=== PATIENT | male | born 1970 | race Caucasian/White ===

== ENCOUNTER 2017-05-08 12:05 | Emergency (ER) | payer SELFPAY ==
[~2017-05-08] VITALS: Ht 188 cm; Wt 80.0 kg
[~2017-05-08 12:05] MED LIST: BACT800T5 PO; CEPH500C3 PO; REME15TA PO; SERO400T3 PO; SERT100 PO; VIST25CA PO
[2017-05-08 12:17] VITALS: BP 121/69; PULSE 72; RESP 16; TEMP 98.2; O2SAT 94
[2017-05-08 12:21] VITALS: O2SAT 95
[2017-05-08 12:56] LABS: AUTOMATED NEUTROPHIL # 3.5 TH/MM3 (1.8-7.7); BASOPHIL % 0.7 % (0.0-2.0); EOSINOPHIL # 0.1 TH/MM3 (0-0.4); HEMATOCRIT 35.9 % (39.0-51.0); HEMO FLAGS DIFF FINAL; LYMPH % 27.4 % (9.0-44.0); LYMPHOCYTE # 1.5 TH/MM3 (1.0-4.8); MEAN CELL VOLUME 90.3 FL (80.0-100.0); MEAN CORPUSCULAR HEMOGLOBIN 30.3 PG (27.0-34.0); MEAN CORPUSCULAR HGB CONC 33.5 % (32.0-36.0); MONO % 8.6 % (0.0-8.0); NEUT % 62.3 % (16.0-70.0); PLATELET COUNT 275 TH/MM3 (150-450); RED BLOOD COUNT 3.97 MIL/MM3 (4.50-5.90); RED CELL DISTRIBUTION WIDTH 14.2 % (11.6-17.2); WHITE BLOOD COUNT 5.6 TH/MM3 (4.0-11.0)
--- NOTE | 2017-05-08 12:57 | PD ---
HPI Chief Complaint: Seizure Time Seen by Provider: 12:19 Travel History International Travel<30 days: No Contact w/Intl Traveler<30days: No Traveled to known affect area: No History of Present Illness HPI 46 is old male was brought in by EMS after a seizure episode. Patient has history of traumatic brain injury with recurrent seizure. Patient was seen by physician in the past and not put on any antiseizure medication. Patient states that the seizure usually induced by stress. Patient states that he smoked K2 recently including this morning. Patient has history of cocaine abuse in the past. Patient states that he is not on any routine medication. Patient denies any alcohol abuse. Patient denies any injury during the seizure episode this morning. PFSH Past Medical History Hx Anticoagulant Therapy: No Cardiovascular Problems: No Chemotherapy: No Cerebrovascular Accident: No Diminished Hearing: No Respiratory: No Seizures: Yes ?: Not Past Surgical History Other Surgery: Yes (BRAIN SURGERY.) Social History Alcohol Use: No (RARE) Tobacco Use: Yes (1.5 PPD) Substance Use: Yes (MARIJUANA DAILY ) Allergies-Medications (Allergen,Severity, Reaction): Coded Allergies: acetaminophen (Unverified Allergy, Severe, Rash, 05/08/17) divalproex sodium (Unverified Allergy, Severe, Itching, 05/08/17) propoxyphene (Unverified Allergy, Severe, Rash, 05/08/17) *MDRO Multi-Drug Resistant Organism (Verified Adverse Reaction, Unknown, ) MRSA (elbow-03/2016) Reported Meds & Prescriptions Reported Meds & Active Scripts Active Review of Systems General / Constitutional: No: Fever Eyes: No: Visual changes HENT: No: Headaches Cardiovascular: No: Chest Pain or Discomfort Respiratory: No: Shortness of Breath Gastrointestinal: No: Abdominal Pain Genitourinary: No: Dysuria Musculoskeletal: No: Pain Skin: No Rash Neurologic: Positive: Seizures, No: Weakness Psychiatric: No: Depression Endocrine: No: Polydipsia Hematologic/Lymphatic: No: Easy Bruising Physical Exam Narrative GENERAL: Well-nourished, well-developed patient. SKIN: Focused skin assessment warm/dry. HEAD: Normocephalic. EYES: No scleral icterus. No injection or drainage. NECK: Supple, trachea midline. No JVD or lymphadenopathy. CARDIOVASCULAR: Regular rate and rhythm without murmurs, gallops, or rubs. RESPIRATORY: Breath sounds equal bilaterally. No accessory muscle use. GASTROINTESTINAL: Abdomen soft, non-tender, nondistended. MUSCULOSKELETAL: No cyanosis, or edema. BACK: Nontender without obvious deformity. No CVA tenderness. Neurologic exam normal. Data Data Last Documented VS Vital Signs Date Time Temp Pulse Resp B/P (MAP) Pulse Ox O2 Delivery O2 Flow Rate FiO2 05/08/17 12:21 95 Room Air 05/08/17 12:17 98.2 72 16 121/69 (86) Orders Orders Complete Blood Count With Diff (05/08/17 12:19) Comprehensive Metabolic Panel (05/08/17 12:19) Thyroid Stimulating Hormone (05/08/17 12:19) Iv Access Insert/Monitor (05/08/17 12:19) Ecg Monitoring (05/08/17 12:19) Oximetry (05/08/17 12:19) Drug Screen, Random Urine (05/08/17 12:19) Electrocardiogram (05/08/17 ) Labs Laboratory Tests Test 05/08/17 12:30 White Blood Count 5.6 TH/MM3 Red Blood Count 3.97 MIL/MM3 Hemoglobin 12.0 GM/DL Hematocrit 35.9 % Mean Corpuscular Volume 90.3 FL Mean Corpuscular Hemoglobin 30.3 PG Mean Corpuscular Hemoglobin Concent 33.5 % Red Cell Distribution Width 14.2 % Platelet Count 275 TH/MM3 Mean Platelet Volume 8.5 FL Neutrophils (%) (Auto) 62.3 % Lymphocytes (%) (Auto) 27.4 % Monocytes (%) (Auto) 8.6 % Eosinophils (%) (Auto) 1.0 % Basophils (%) (Auto) 0.7 % Neutrophils # (Auto) 3.5 TH/MM3 Lymphocytes # (Auto) 1.5 TH/MM3 Monocytes # (Auto) 0.5 TH/MM3 Eosinophils # (Auto) 0.1 TH/MM3 Basophils # (Auto) 0.0 TH/MM3 CBC Comment DIFF FINAL Differential Comment Blood Urea Nitrogen 15 MG/DL Creatinine 0.96 MG/DL Random Glucose 88 MG/DL Total Protein 6.8 GM/DL Albumin 3.4 GM/DL Calcium Level 8.6 MG/DL Alkaline Phosphatase 102 U/L Aspartate Amino Transf (AST/SGOT) 12 U/L Alanine Aminotransferase (ALT/SGPT) 18 U/L Total Bilirubin 0.2 MG/DL Sodium Level 145 MEQ/L Potassium Level 3.8 MEQ/L Chloride Level 113 MEQ/L Carbon Dioxide Level 26.1 MEQ/L Anion Gap 6 MEQ/L Estimat Glomerular Filtration Rate 84 ML/MIN Thyroid Stimulating Hormone 3rd Gen 1.780 uIU/ML Urine Opiates Screen NEG Urine Barbiturates Screen NEG Urine Amphetamines Screen NEG Urine Benzodiazepines Screen NEG Urine Cocaine Screen NEG Urine Cannabinoids Screen NEG MDM Medical Decision Making Medical Screen Exam Complete: Yes Emergency Medical Condition: Yes Interpretation(s) 1336 PM. CBC within normal limit. CMP within normal limit. Urine drug screen negative. Differential Diagnosis Differential diagnosis including seizure, electrolyte imbalance, substance abuse. Narrative Course 46 years old male with seizure. History of substance abuse. Diagnosis Primary Impression: Seizure Additional Impression: Substance abuse Patient Instructions: General Instructions Additional Instructions: Follow-up with local physician and neurologist. Return as needed. Advised patient against drug abuse. No driving until cleared by neurologist. Med/Other Pt SpecificInfo: No Meds Exist/No RX given Disposition: 01 DISCHARGE HOME Condition: Stable Miguel Webber MD May 08, 2017 12:57
[2017-05-08 13:09] LABS: ALT (GPT) 18 U/L (12-78); ANION GAP 6 MEQ/L (5-15); AST (GOT) 12 U/L (15-37); BICARBONATE 26.1 MEQ/L (21.0-32.0); BLOOD UREA NITROGEN 15 MG/DL (7-18); CHLORIDE 113 MEQ/L (98-107); GLOMERULAR FILTRATION RATE 84 ML/MIN (>89); POTASSIUM 3.8 MEQ/L (3.5-5.1); SODIUM (NA) 145 MEQ/L (136-145)
[2017-05-08 13:18] LABS: ALKALINE PHOSPHATASE 102 U/L (45-117); TOTAL BILIRUBIN ADULT 0.2 MG/DL (0.2-1.0)
--- NOTE | 2017-05-09 17:41 | EKG ---
Date Performed: 05/08/2017 Time Performed: 12:22:54 PTAGE: 46 years EKG: Sinus rhythm NORMAL ECG PREVIOUS TRACING : 05/03/2017 06.45 Compared to prior tracing no significant change DOCTOR: Ananth Bloom Interpretating Date/Time 05/09/2017 17:37:07
== END 2017-05-08 13:56 | disposition home or self-care (01) ==
LOC: NEPD 12:05
DX: R56.9 Unspecified convulsions (principal); F19.90 Other psychoactive substance use, unspecified, uncomplicated; F12.90 Cannabis use, unspecified, uncomplicated; Z72.0 Tobacco use
CPT/HCPCS: 80053; 80307; 84443; 85025; 93005; 99284

== ENCOUNTER 2017-08-21 19:40 | Emergency (ER) | payer SELFPAY ==
[~2017-08-21] VITALS: Ht 188 cm; Wt 82.0 kg
[2017-08-21 19:47] VITALS: BP 117/62; PULSE 74; RESP 18; TEMP 97.9; O2SAT 96
--- NOTE | 2017-08-21 20:00 | PD ---
HPI Chief Complaint: Fall Time Seen by Provider: 19:44 Travel History International Travel<30 days: No Contact w/Intl Traveler<30days: No Traveled to known affect area: No History of Present Illness HPI 46-year-old male that presents to the ED for evaluation of possible altered mental status. Patient was brought here by ambulance for evaluation of this. Per report from the patient as well as the ambulance he was walking and he was stumbling when he had a possible syncopal episode. Unclear if he hit his head or not. Per patient himself he doesn't remember what happened. Apparently this was obtained from friend who was with him. His friend is not in the bedside. Patient states that his history of seizures and psych. He does have a history of substance abuse as well but he completely denies any substance abuse currently. Per EMS she's been acting somewhat strange but answers questions of properly. He was given IV fluids by ambulance. Patient denies any pain of any kind. He states that he is to be on Keppra for his seizures but denies any seizure-like activity or feeling like he had a seizure. He does tell me that he has not eaten or drinking anything today. Denies any pain. This happened an hour before coming to the ED. Has an allergy to different medications. PFSH Past Medical History Hx Anticoagulant Therapy: No Cardiovascular Problems: No Chemotherapy: No Cerebrovascular Accident: No Diminished Hearing: No Respiratory: No Seizures: Yes Past Surgical History Other Surgery: Yes (BRAIN SURGERY.) Social History Alcohol Use: No (RARE) Tobacco Use: Yes (1.5 PPD) Substance Use: Yes (MARIJUANA DAILY ) Allergies-Medications (Allergen,Severity, Reaction): Coded Allergies: acetaminophen (Unverified Allergy, Severe, Rash, 05/08/17) divalproex sodium (Unverified Allergy, Severe, Itching, 05/08/17) propoxyphene (Unverified Allergy, Severe, Rash, 05/08/17) risperidone (Verified Allergy, Severe, 08/21/17) *MDRO Multi-Drug Resistant Organism (Verified Adverse Reaction, Unknown, ) MRSA (elbow-03/2016) Reported Meds & Prescriptions Reported Meds & Active Scripts Active Reported Keppra (Levetiracetam) 500 Mg Tab 500 Mg PO BID Mirtazapine 30 Mg Tab 30 Mg PO HS Buspirone (Buspirone HCl) 15 Mg Tab 15 Mg PO TID Sertraline (Sertraline HCl) 50 Mg Tab 50 Mg PO DAILY Review of Systems Except as stated in HPI: all other systems reviewed are Neg Physical Exam Narrative GENERAL: SKIN: Warm and dry. HEAD: Atraumatic. Normocephalic. EYES: Pupils equal and round. No scleral icterus. No injection or drainage. ENT: No nasal bleeding or discharge. Mucous membranes pink and moist. Tongue is midline. No uvula deviation. NECK: Trachea midline. No JVD. CARDIOVASCULAR: Regular rate and rhythm. No murmurs, S3, S4. RESPIRATORY: No accessory muscle use. Clear to auscultation. Breath sounds equal bilaterally. GASTROINTESTINAL: Abdomen soft, non-tender, nondistended. Hepatic and splenic margins not palpable. MUSCULOSKELETAL: Extremities without clubbing, cyanosis, or edema. No obvious deformities. Full range of motion of the upper and lower extremities bilaterally. 2+ pulses bilaterally. NEUROLOGICAL: Awake and alert. No obvious cranial nerve deficits. Motor grossly within normal limits. Five out of 5 muscle strength in the arms and legs. Normal speech. PSYCHIATRIC: Appropriate mood and affect; insight and judgment normal. Data Data Last Documented VS Vital Signs Date Time Temp Pulse Resp B/P (MAP) Pulse Ox O2 Delivery O2 Flow Rate FiO2 08/21/17 22:23 98 18 127/84 (98) 08/21/17 19:57 96 Room Air 08/21/17 19:47 97.9 Orders Orders Electrocardiogram (08/21/17 19:48) Complete Blood Count With Diff (08/21/17 19:48) Comprehensive Metabolic Panel (08/21/17 19:48) Creatine Kinase (Cpk) (08/21/17 19:48) Magnesium (Mg) (08/21/17 19:48) Thyroid Stimulating Hormone (08/21/17 19:48) Ct Brain W/O Iv Contrast(Rout) (08/21/17 19:48) Iv Access Insert/Monitor (08/21/17 19:48) Drug Screen, Random Urine (08/21/17 19:48) Alcohol (Ethanol) (08/21/17 19:48) Salicylates (Aspirin) (08/21/17 19:48) Tylenol (Acetaminophen) (08/21/17 19:48) Troponin I (08/21/17 19:58) Orthostatic Blood Pressure (08/21/17 21:51) Labs Laboratory Tests Test 08/21/17 20:00 White Blood Count 5.5 TH/MM3 Red Blood Count 3.65 MIL/MM3 Hemoglobin 11.1 GM/DL Hematocrit 33.6 % Mean Corpuscular Volume 92.0 FL Mean Corpuscular Hemoglobin 30.2 PG Mean Corpuscular Hemoglobin Concent 32.9 % Red Cell Distribution Width 15.8 % Platelet Count 370 TH/MM3 Mean Platelet Volume 7.9 FL Neutrophils (%) (Auto) 53.5 % Lymphocytes (%) (Auto) 34.2 % Monocytes (%) (Auto) 10.0 % Eosinophils (%) (Auto) 1.5 % Basophils (%) (Auto) 0.8 % Neutrophils # (Auto) 3.0 TH/MM3 Lymphocytes # (Auto) 1.9 TH/MM3 Monocytes # (Auto) 0.5 TH/MM3 Eosinophils # (Auto) 0.1 TH/MM3 Basophils # (Auto) 0.0 TH/MM3 CBC Comment DIFF FINAL Differential Comment Blood Urea Nitrogen 21 MG/DL Creatinine 1.08 MG/DL Random Glucose 97 MG/DL Total Protein 7.2 GM/DL Albumin 3.4 GM/DL Calcium Level 8.4 MG/DL Magnesium Level 2.0 MG/DL Alkaline Phosphatase 99 U/L Aspartate Amino Transf (AST/SGOT) 15 U/L Alanine Aminotransferase (ALT/SGPT) 16 U/L Total Bilirubin 0.1 MG/DL Sodium Level 140 MEQ/L Potassium Level 3.8 MEQ/L Chloride Level 108 MEQ/L Carbon Dioxide Level 25.5 MEQ/L Anion Gap 7 MEQ/L Estimat Glomerular Filtration Rate 74 ML/MIN Total Creatine Kinase 80 U/L Troponin I LESS THAN 0.02 NG/ML Thyroid Stimulating Hormone 3rd Gen 2.060 uIU/ML Salicylates Level 3.5 MG/DL Acetaminophen Level LESS THAN 2.0 MCG/ML Ethyl Alcohol Level LESS THAN 3 MG/DL MDM Medical Decision Making Medical Screen Exam Complete: Yes Emergency Medical Condition: Yes Medical Record Reviewed: Yes Interpretation(s) CBC & BMP Diagram 08/21/17 20:00 Total Protein 7.2, Albumin 3.4, Calcium Level 8.4 L, Magnesium Level 2.0, Alkaline Phosphatase 99, Aspartate Amino Transf (AST/SGOT) 15, Alanine Aminotransferase (ALT/SGPT) 16, Total Bilirubin 0.1 L EKG shows sinus rhythm with no sign of acute ischemia and arrhythmia. Read by me and attending. Troponin and CK-MB negative. Last Impressions Head CT 08/21/171947 Signed Impressions: Service Date/Time: Monday, August 21, 2017 20:08 - CONCLUSION: 1. No acute intracranial abnormalities. 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 Jovan Samayoa MD Differential Diagnosis Syncope versus presyncope versus substance abuse versus less likely seizure versus ACS Narrative Course 46-year-old male that presents to the ED for evaluation of possible syncope. Patient was properly examined and was found to have signs and symptoms of unclear etiology at this time. I did review the patient's medical record he apparently does have a history of seizures but takes no medications for this. Has a history also of psychiatric illness as well as substance abuse per the medical records. Patient denies any substance abuse at that he does appear to be acting somewhat strange but does not appear to have any neurological deficits at this time. He denies any seizure-like activity. We'll do syncope workup to rule out any sign of acute disease. Patient is given IV fluids here. Labs and imaging showed no sign of acute disease. tox screen pending. Signed out patient to my attending pending disposition. Abel Lee Aug 21, 2017 20:00
[2017-08-21] MEDS ORDERED: MIRT30TA PO (20:03)
[2017-08-21] MEDS ORDERED: BUSP15TA PO (20:03)
[2017-08-21] MEDS ORDERED: LEVE500 PO (20:03)
[2017-08-21] MEDS ORDERED: SERT-132 PO (20:03)
--- NOTE | 2017-08-21 20:25 | RADRPT ---
EXAM DATE/TIME: 08/21/2017 20:08 [facility] COMPARISON: No previous studies available for comparison. INDICATIONS : Altered mental status. RADIATION DOSE: 30.26 CTDIvol (mGy) MEDICAL HISTORY : Seizures. SURGICAL HISTORY : None. ENCOUNTER: Initial ACUITY: 1 day PAIN SCALE: 0/10 LOCATION: cranial TECHNIQUE: Multiple contiguous axial images were obtained of the head. Using automated exposure control and adj ustment of the mA and/or kV according to patient size, radiation dose was kept as low as reasonably a chievable to obtain optimal diagnostic quality images. DICOM format image data is available electro nically for review and comparison. FINDINGS: CEREBRUM: The ventricles are normal for age. There is focal encephalomalacia in the right frontal lobe and post erior temporal region related to remote trauma. No evidence of midline shift, mass lesion, hemorrhag e or acute infarction. No extra-axial fluid collections are seen. POSTERIOR FOSSA: The cerebellum and brainstem are intact. The 4th ventricle is midline. The cerebellopontine angle i s unremarkable. EXTRACRANIAL: The visualized portion of the orbits is intact. SKULL: The calvaria is intact. No evidence of skull fracture. CONCLUSION: 1. No acute intracranial abnormalities. 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 Jovan Samayoa MD on August 21, 2017 at 20:22 Board Certified Radiologist. This report was verified electronically.
[2017-08-21 20:45] LABS: BASOPHIL % 0.8 % (0.0-2.0); EOSINOPHIL # 0.1 TH/MM3 (0-0.4); EOSINOPHIL % 1.5 % (0.0-4.0); HEMATOCRIT 33.6 % (39.0-51.0); HEMO FLAGS DIFF FINAL; LYMPH % 34.2 % (9.0-44.0); LYMPHOCYTE # 1.9 TH/MM3 (1.0-4.8); MEAN CORPUSCULAR HEMOGLOBIN 30.2 PG (27.0-34.0); MEAN CORPUSCULAR HGB CONC 32.9 % (32.0-36.0); NEUT % 53.5 % (16.0-70.0); PLATELET COUNT 370 TH/MM3 (150-450); RED BLOOD COUNT 3.65 MIL/MM3 (4.50-5.90); RED CELL DISTRIBUTION WIDTH 15.8 % (11.6-17.2); WHITE BLOOD COUNT 5.5 TH/MM3 (4.0-11.0)
[2017-08-21 21:10] LABS: ALT (GPT) 16 U/L (12-78)
[2017-08-21 21:16] LABS: ANION GAP 7 MEQ/L (5-15); AST (GOT) 15 U/L (15-37); BICARBONATE 25.5 MEQ/L (21.0-32.0); BLOOD UREA NITROGEN 21 MG/DL (7-18); CHLORIDE 108 MEQ/L (98-107); GLOMERULAR FILTRATION RATE 74 ML/MIN (>89); POTASSIUM 3.8 MEQ/L (3.5-5.1); SODIUM (NA) 140 MEQ/L (136-145)
[2017-08-21 21:18] LABS: ALKALINE PHOSPHATASE 99 U/L (45-117); TOTAL BILIRUBIN ADULT 0.1 MG/DL (0.2-1.0)
[2017-08-21 21:26] LABS: ACETAMINOPHEN LESS THAN 2.0 MCG/ML (10.0-30.0); ALCOHOL LESS THAN 3 MG/DL (0-5); CREATINE KINASE 80 U/L (39-308)
[2017-08-21 22:20] VITALS: BP 120/77; RESP 18
[2017-08-21 22:21] VITALS: BP 122/78; RESP 18
[2017-08-21 22:23] VITALS: BP 127/84; RESP 18
[2017-08-22 02:00] VITALS: BP 116/72; PULSE 62; RESP 16; O2SAT 100
--- NOTE | 2017-08-22 05:43 | PD ---
Data Data Last Documented VS Vital Signs Date Time Temp Pulse Resp B/P (MAP) Pulse Ox O2 Delivery O2 Flow Rate FiO2 08/22/17 02:00 62 16 116/72 (87) 100 Room Air 08/21/17 19:47 97.9 Orders Orders Electrocardiogram (08/21/17 19:48) Complete Blood Count With Diff (08/21/17 19:48) Comprehensive Metabolic Panel (08/21/17 19:48) Creatine Kinase (Cpk) (08/21/17 19:48) Magnesium (Mg) (08/21/17 19:48) Thyroid Stimulating Hormone (08/21/17 19:48) Ct Brain W/O Iv Contrast(Rout) (08/21/17 19:48) Iv Access Insert/Monitor (08/21/17 19:48) Drug Screen, Random Urine (08/21/17 19:48) Alcohol (Ethanol) (08/21/17 19:48) Salicylates (Aspirin) (08/21/17 19:48) Tylenol (Acetaminophen) (08/21/17 19:48) Troponin I (08/21/17 19:58) Orthostatic Blood Pressure (08/21/17 21:51) Electrocardiogram (08/22/17 01:26) Troponin I (08/22/17 01:26) Ed Discharge Order (08/22/17 05:37) Labs Laboratory Tests Test 08/21/17 20:00 08/21/17 22:50 08/22/17 01:40 White Blood Count 5.5 TH/MM3 Red Blood Count 3.65 MIL/MM3 Hemoglobin 11.1 GM/DL Hematocrit 33.6 % Mean Corpuscular Volume 92.0 FL Mean Corpuscular Hemoglobin 30.2 PG Mean Corpuscular Hemoglobin Concent 32.9 % Red Cell Distribution Width 15.8 % Platelet Count 370 TH/MM3 Mean Platelet Volume 7.9 FL Neutrophils (%) (Auto) 53.5 % Lymphocytes (%) (Auto) 34.2 % Monocytes (%) (Auto) 10.0 % Eosinophils (%) (Auto) 1.5 % Basophils (%) (Auto) 0.8 % Neutrophils # (Auto) 3.0 TH/MM3 Lymphocytes # (Auto) 1.9 TH/MM3 Monocytes # (Auto) 0.5 TH/MM3 Eosinophils # (Auto) 0.1 TH/MM3 Basophils # (Auto) 0.0 TH/MM3 CBC Comment DIFF FINAL Differential Comment Blood Urea Nitrogen 21 MG/DL Creatinine 1.08 MG/DL Random Glucose 97 MG/DL Total Protein 7.2 GM/DL Albumin 3.4 GM/DL Calcium Level 8.4 MG/DL Magnesium Level 2.0 MG/DL Alkaline Phosphatase 99 U/L Aspartate Amino Transf (AST/SGOT) 15 U/L Alanine Aminotransferase (ALT/SGPT) 16 U/L Total Bilirubin 0.1 MG/DL Sodium Level 140 MEQ/L Potassium Level 3.8 MEQ/L Chloride Level 108 MEQ/L Carbon Dioxide Level 25.5 MEQ/L Anion Gap 7 MEQ/L Estimat Glomerular Filtration Rate 74 ML/MIN Total Creatine Kinase 80 U/L Troponin I LESS THAN 0.02 NG/ML LESS THAN 0.02 NG/ML Thyroid Stimulating Hormone 3rd Gen 2.060 uIU/ML Salicylates Level 3.5 MG/DL Acetaminophen Level LESS THAN 2.0 MCG/ML Ethyl Alcohol Level LESS THAN 3 MG/DL Urine Opiates Screen NEG Urine Barbiturates Screen NEG Urine Amphetamines Screen NEG Urine Benzodiazepines Screen NEG Urine Cocaine Screen NEG Urine Cannabinoids Screen NEG MDM Supervised Visit with MICHAEL: Yes Narrative Course Patient is observed in the ER for over 7 hours 2 troponins are negative EKGs are negative as well his orthostatics were within normal limits there is no signs of repeat syncope nor any cardiac cause of his event tonight discharged home follow-up Diagnosis Primary Impression: Near syncope Patient Instructions: General Instructions, Near Syncope (ED) Disposition: 01 DISCHARGE HOME Condition: Ji Tovar MD Aug 22, 2017 05:43
--- NOTE | 2017-08-22 13:58 | EKG ---
Date Performed: 08/21/2017 Time Performed: 19:57:01 PTAGE: 46 years EKG: Sinus rhythm NORMAL ECG Compared to prior tracing no significant change PREVIOUS TRACING : 05/08/2017 12.22 DOCTOR: Kalani Khan Interpretating Date/Time 08/22/2017 13:57:23
--- NOTE | 2017-08-22 13:59 | EKG ---
Date Performed: 08/22/2017 Time Performed: 01:50:24 PTAGE: 46 years EKG: Sinus rhythm ST ELEVATION, PROBABLY EARLY REPOLARIZATION BORDERLINE ECG Compared to prior tracing no significant change PREVIOUS TRACING : 08/21/2017 19.57 DOCTOR: Kalani Khan Interpretating Date/Time 08/22/2017 13:57:52
== END 2017-08-22 06:02 | disposition home or self-care (01) ==
LOC: NEPC 19:40
DX: R55 Syncope and collapse (principal); F17.200 Nicotine dependence, unspecified, uncomplicated; Z79.899 Other long term (current) drug therapy; Z88.8 Allergy status to other drugs, medicaments and biological substances
CPT/HCPCS: 70450; 80053; 80307; 82550; 83735; 84443; 84484; 85025; 93005; 99285

== ENCOUNTER 2017-08-26 19:16 | Emergency (ER) | payer SELFPAY ==
[~2017-08-26 19:16] MED LIST changes: -BACT800T5 PO; +BUSP15TA PO; -CEPH500C3 PO; +LEVE500 PO; +MIRT30TA PO; -REME15TA PO; -SERO400T3 PO; +SERT-132 PO; -SERT100 PO; -VIST25CA PO
[2017-08-26 19:38] VITALS: BP 100/61; PULSE 68; RESP 16; TEMP 98.8; O2SAT 97
[2017-08-26] MEDS ORDERED: SODIUM CHLORIDE 0.9% FLUSH 10 ML FLUSH IV FLUSH PRN (19:45)
[2017-08-26] MEDS ORDERED: SODIUM CHLOR 0.9% 1000 ML INJ 1,000 ML IV SCH (19:45)
--- NOTE | 2017-08-26 19:59 | PD ---
HPI Chief Complaint: altered mental status Time Seen by Provider: 19:43 Travel History International Travel<30 days: No Contact w/Intl Traveler<30days: No Traveled to known affect area: No History of Present Illness HPI 46 year old male with a history of anxiety, depression, bipolar disorder, presents today via EMS after he was found laying in the street. Paramedics report initially when they found him he was difficult to arouse. He awoke to sternal rub. After that, he was answering questions. Patient states he took 2 extra doses of his Remeron to get some sleep. He denies any intentional overdose. He states he normally takes 60 mg and tonight he took 120 mg. He denies any drugs or alcohol abuse today. Patient does report that in the past he has had cocaine abuse. The patient has abrasion to his right upper forehead. He is not sure how he obtained this abrasion. The patient is awake and able to answer questions appropriately. He has no physical complaints at this time. PFSH Past Medical History Hx Anticoagulant Therapy: No Cardiovascular Problems: No Chemotherapy: No Cerebrovascular Accident: No Diminished Hearing: No Respiratory: No Seizures: Yes Past Surgical History Other Surgery: Yes (BRAIN SURGERY.) Social History Alcohol Use: No (RARE) Tobacco Use: Yes (1.5 PPD) Substance Use: Yes (MARIJUANA DAILY ) Allergies-Medications (Allergen,Severity, Reaction): Coded Allergies: acetaminophen (Unverified Allergy, Severe, Rash, 08/26/17) divalproex sodium (Unverified Allergy, Severe, Itching, 08/26/17) propoxyphene (Unverified Allergy, Severe, Rash, 08/26/17) risperidone (Verified Allergy, Severe, 08/26/17) *MDRO Multi-Drug Resistant Organism (Verified Adverse Reaction, Unknown, 08/26/17) MRSA (elbow-03/2016) Reported Meds & Prescriptions Reported Meds & Active Scripts Active Reported Keppra (Levetiracetam) 500 Mg Tab 500 Mg PO BID Mirtazapine 30 Mg Tab 30 Mg PO HS Buspirone (Buspirone HCl) 15 Mg Tab 15 Mg PO TID Sertraline (Sertraline HCl) 50 Mg Tab 50 Mg PO DAILY Review of Systems Except as stated in HPI: all other systems reviewed are Neg General / Constitutional: No: Fever, Chills HENT: No: Headaches (denies), Lightheadedness, Neck Pain Cardiovascular: No: Chest Pain or Discomfort, Palpitations Respiratory: No: Cough, Shortness of Breath Gastrointestinal: No: Nausea, Vomiting Genitourinary: No: Dysuria, Incontinence Musculoskeletal: No: Weakness, Pain Neurologic: Positive: Other (paramedics report unsteady on his feet.), No: Weakness, Headache Psychiatric: No: Suicidal Ideations, Substance Abuse, Homicidal Ideation Physical Exam Narrative GENERAL: Well-developed well-nourished male in no acute rest her distress. Patient acknowledges me when I entered the room and was answering questions appropriately. SKIN: Focused skin assessment warm/dry. HEAD: Normocephalic. There is an abrasion to the right upper forehead. Patient is unsure how this happened. EYES: No scleral icterus. No injection or drainage. ENT: No nasal bleeding or discharge. Mucous membranes pink and moist. NECK: Trachea midline. No JVD. Supple. CARDIOVASCULAR: Regular rate and rhythm. No murmur appreciated. RESPIRATORY: No accessory muscle use. Clear to auscultation. Breath sounds equal bilaterally. GASTROINTESTINAL: Abdomen soft, non-tender, nondistended. Hepatic and splenic margins not palpable. MUSCULOSKELETAL: No obvious deformities. No clubbing. No cyanosis. No edema. NEUROLOGICAL: Awake and slightly sleepy however arousable. No obvious cranial nerve deficits. Motor grossly within normal limits. Normal speech. Data Data Last Documented VS Vital Signs Date Time Temp Pulse Resp B/P (MAP) Pulse Ox O2 Delivery O2 Flow Rate FiO2 08/26/17 20:45 61 16 106/66 (79) 97 Room Air 08/26/17 19:38 98.8 Orders Orders Electrocardiogram (08/26/17 19:45) Complete Blood Count With Diff (08/26/17 19:45) Comprehensive Metabolic Panel (08/26/17 19:45) Ct Brain W/O Iv Contrast(Rout) (08/26/17 19:45) Blood Glucose (08/26/17 19:45) Ecg Monitoring (08/26/17 19:45) Iv Access Insert/Monitor (08/26/17 19:45) Oximetry (08/26/17 19:45) Sodium Chloride 0.9% Flush (Ns Flush) (08/26/17 19:45) Sodium Chlor 0.9% 1000 Ml Inj (Ns 1000 M (08/26/17 19:45) Drug Screen, Random Urine (08/26/17 19:45) Alcohol (Ethanol) (08/26/17 19:45) Labs Laboratory Tests Test 08/26/17 20:20 White Blood Count 5.6 TH/MM3 Red Blood Count 3.23 MIL/MM3 Hemoglobin 10.0 GM/DL Hematocrit 29.6 % Mean Corpuscular Volume 91.7 FL Mean Corpuscular Hemoglobin 31.0 PG Mean Corpuscular Hemoglobin Concent 33.8 % Red Cell Distribution Width 16.2 % Platelet Count 296 TH/MM3 Mean Platelet Volume 8.4 FL Neutrophils (%) (Auto) 53.3 % Lymphocytes (%) (Auto) 35.8 % Monocytes (%) (Auto) 8.3 % Eosinophils (%) (Auto) 1.8 % Basophils (%) (Auto) 0.8 % Neutrophils # (Auto) 3.0 TH/MM3 Lymphocytes # (Auto) 2.0 TH/MM3 Monocytes # (Auto) 0.5 TH/MM3 Eosinophils # (Auto) 0.1 TH/MM3 Basophils # (Auto) 0.0 TH/MM3 CBC Comment DIFF FINAL Differential Comment Blood Urea Nitrogen 18 MG/DL Creatinine 1.23 MG/DL Random Glucose 99 MG/DL Total Protein 6.3 GM/DL Albumin 3.1 GM/DL Calcium Level 8.1 MG/DL Alkaline Phosphatase 93 U/L Aspartate Amino Transf (AST/SGOT) 12 U/L Alanine Aminotransferase (ALT/SGPT) 14 U/L Total Bilirubin 0.2 MG/DL Sodium Level 143 MEQ/L Potassium Level 3.5 MEQ/L Chloride Level 111 MEQ/L Carbon Dioxide Level 22.9 MEQ/L Anion Gap 9 MEQ/L Estimat Glomerular Filtration Rate 63 ML/MIN Ethyl Alcohol Level LESS THAN 3 MG/DL MDM Medical Decision Making Medical Screen Exam Complete: Yes Emergency Medical Condition: Yes Differential Diagnosis Metabolic derangement versus overmedication versus intoxication Narrative Course 46-year-old male brought in by [facility] after they found him laying in the street. The patient reported taking extra Remeron medication. He was not suicidal but wanted to sleep. He is awake alert and answering questions. He has been observed throughout the night and is awake and appropriate now. He'll be discharged home told not to take extra medication. CT scan was negative for acute process. Diagnosis Primary Impression: overmedication. Additional Impression: Bipolar disorder Additional Instructions: Do not take extra medication. Follow up with your mental health provider. Disposition: 01 DISCHARGE HOME Condition: Stable Ish Bryson MD Aug 26, 2017 19:59
[2017-08-26 20:31] VITALS: O2SAT 97
[2017-08-26 20:39] LABS: BASOPHIL % 0.8 % (0.0-2.0); EOSINOPHIL # 0.1 TH/MM3 (0-0.4); EOSINOPHIL % 1.8 % (0.0-4.0); HEMATOCRIT 29.6 % (39.0-51.0); LYMPH % 35.8 % (9.0-44.0); MEAN CELL VOLUME 91.7 FL (80.0-100.0); MEAN CORPUSCULAR HGB CONC 33.8 % (32.0-36.0); MEAN PLATELET VOLUME 8.4 FL (7.0-11.0); MONO % 8.3 % (0.0-8.0); MONOCYTE # 0.5 TH/MM3 (0-0.9); NEUT % 53.3 % (16.0-70.0); PLATELET COUNT 296 TH/MM3 (150-450); RED BLOOD COUNT 3.23 MIL/MM3 (4.50-5.90); RED CELL DISTRIBUTION WIDTH 16.2 % (11.6-17.2); WHITE BLOOD COUNT 5.6 TH/MM3 (4.0-11.0)
[2017-08-26 20:45] VITALS: BP 106/66; PULSE 61; RESP 16; O2SAT 97
--- NOTE | 2017-08-26 20:51 | RADRPT ---
EXAM DATE/TIME: 08/26/2017 20:05 [facility] COMPARISON: CT BRAIN W/O CONTRAST, October 02, 2009, 4:06. CT BRAIN W/O CONTRAST, October 01, 2009, 3:49. CT BR AIN W/O CONTRAST, August 21, 2017, 20:08. INDICATIONS : Altered mental status. RADIATION DOSE: 32.19 CTDIvol (mGy) ; Patient motion MEDICAL HISTORY : Seizures. Hypertension. SURGICAL HISTORY : None. ENCOUNTER: Initial ACUITY: 1 day PAIN SCALE: 0/10 LOCATION: cranial TECHNIQUE: Multiple contiguous axial images were obtained of the head. Using automated exposure control and adj ustment of the mA and/or kV according to patient size, radiation dose was kept as low as reasonably a chievable to obtain optimal diagnostic quality images. DICOM format image data is available electro nically for review and comparison. FINDINGS: CEREBRUM: The ventricles are normal for age. Stable areas of encephalomalacia in the right frontal and right p osterior parietal regions, unchanged from 08/21/17 and correlating with areas of remote hemorrhage. No evidence of midline shift, mass lesion, hemorrhage or acute infarction. No extra-axial fluid shashi ections are seen. POSTERIOR FOSSA: The cerebellum and brainstem are intact. The 4th ventricle is midline. The cerebellopontine angle i s unremarkable. EXTRACRANIAL: The visualized portion of the orbits is intact. SKULL: The calvaria is intact. No evidence of skull fracture. CONCLUSION: 1. No acute findings in the brain. 2. Stable right frontal and posterior parietal encephalomalacia. José Miguel Currie MD on August 26, 2017 at 20:47 Board Certified Radiologist. This report was verified electronically.
[2017-08-26 21:06] LABS: ALBUMIN 3.1 GM/DL (3.4-5.0); ALT (GPT) 14 U/L (12-78); AST (GOT) 12 U/L (15-37); BICARBONATE 22.9 MEQ/L (21.0-32.0); BLOOD UREA NITROGEN 18 MG/DL (7-18); CALCIUM 8.1 MG/DL (8.5-10.1); CHLORIDE 111 MEQ/L (98-107); CREATININE 1.23 MG/DL (0.60-1.30); GLOMERULAR FILTRATION RATE 63 ML/MIN (>89); GLUCOSE,RANDOM 99 MG/DL (74-106); SODIUM (NA) 143 MEQ/L (136-145)
[2017-08-26 21:09] LABS: ALKALINE PHOSPHATASE 93 U/L (45-117); TOTAL BILIRUBIN ADULT 0.2 MG/DL (0.2-1.0); TOTAL PROTEIN 6.3 GM/DL (6.4-8.2)
--- NOTE | 2017-08-27 12:40 | EKG ---
Date Performed: 08/26/2017 Time Performed: 20:51:13 PTAGE: 46 years EKG: Sinus rhythm ST ELEVATION, PROBABLY EARLY REPOLARIZATION BORDERLINE ECG Since PREVIOUS TRACING , no significant change noted DOCTOR: Jean Pierre Reyes Interpretating Date/Time 08/27/2017 12:38:28
== END 2017-08-27 06:49 | disposition home or self-care (01) ==
LOC: NEPE 19:16
DX: T43.021A Poisoning by tetracyclic antidepressants, accidental (unintentional), initial encounter (principal); R41.82 Altered mental status, unspecified; F31.9 Bipolar disorder, unspecified; F17.200 Nicotine dependence, unspecified, uncomplicated; Y92.410 Unspecified street and highway as the place of occurrence of the external cause
CPT/HCPCS: 70450; 80053; 80307; 85025; 93005; 96360; 96361; 99285; J7030

== ENCOUNTER 2017-12-16 15:34 | Observation (INO) | payer SELFPAY ==
[~2017-12-16] VITALS: Ht 188 cm; Wt 81.4 kg
[~2017-12-16 15:34] MED LIST changes: +BACT800T5 PO; +BENZ0.5T PO; +BUSP30TA PO; +LISI10TA3 PO; +REME30TA PO; +ZYPR5TAB PO
[2017-12-16 15:41] VITALS: BP 139/70; PULSE 93; RESP 16; TEMP 100.4; O2SAT 98
[2017-12-16] MEDS ORDERED: SODIUM CHLOR 0.9% 1000 ML INJ 1,000 ML IV ONE (16:00)
[2017-12-16] MEDS ORDERED: VANCOMYCIN INJ 1,250 MG in SODIUM CHLOR 0.9% 250 ML INJ 250 ML IV ONE (16:00)
[2017-12-16] MEDS ORDERED: IBUPROFEN 600 MG TAB PO ONE (16:00)
--- NOTE | 2017-12-16 16:01 | PD ---
HPI Chief Complaint: Skin Problem Time Seen by Provider: 15:44 Travel History International Travel<30 days: No Contact w/Intl Traveler<30days: No Traveled to known affect area: No History of Present Illness HPI Patient is a 47-year-old male presents to emergency room with complaints of left arm pain and swelling. 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 Patient reports that this morning, he woke up with increased redness and swelling going up his forearm up to his shoulder. Patient reports that he is feeling weak and dizzy and has been having chills. Patient reports that he has had "bad cellulitis" in the past and has become septic with his cellulitis. reports that tetanus is up to date. PFSH Past Medical History Hx Anticoagulant Therapy: No Arthritis: Yes Asthma: No Bipolar Disorder: Yes Anxiety: Yes Depression: Yes Cancer: No Cardiovascular Problems: No (borderline htn takes no meds) Chemotherapy: No COPD: No Cerebrovascular Accident: No Diminished Hearing: No Gastrointestinal Disorders: Yes GERD: Yes Genitourinary: No Hypertension: Yes Implanted Vascular Access Dvce: No Musculoskeletal: Yes Psychiatric: Yes Respiratory: No Immunizations Current: Yes Migraines: Yes Schizophrenia: Yes Seizures: Yes Sleep Apnea: No Past Surgical History Neurologic Surgery: Yes Other Surgery: Yes (BRAIN SURGERY.) Social History Alcohol Use: No (RARE) Tobacco Use: Yes (1.5 PPD) Substance Use: Yes (MARIJUANA DAILY ) Allergies-Medications (Allergen,Severity, Reaction): Coded Allergies: acetaminophen (Unverified Allergy, Severe, Rash, 12/16/17) divalproex sodium (Unverified Allergy, Severe, Itching, 12/16/17) propoxyphene (Unverified Allergy, Severe, Rash, 12/16/17) risperidone (Verified Allergy, Severe, 12/16/17) *MDRO Multi-Drug Resistant Organism (Verified Adverse Reaction, Unknown, ) MRSA (elbow-03/2016) Reported Meds & Prescriptions Reported Meds & Active Scripts Active Reported Sertraline (Sertraline HCl) 50 Mg Tab 50 Mg PO DAILY Buspirone (Buspirone HCl) 30 Mg Tab 100 Mg PO TID Remeron (Mirtazapine) 30 Mg Tab 30 Mg PO HS Review of Systems General / Constitutional: Positive: Chills, No: Fever Eyes: No: Visual changes HENT: No: Headaches Cardiovascular: No: Chest Pain or Discomfort Respiratory: No: Shortness of Breath Gastrointestinal: No: Abdominal Pain Genitourinary: No: Dysuria Musculoskeletal: No: Pain Skin: Positive Other (Redness and erythema to left upper extremity), No Rash Neurologic: No: Weakness Psychiatric: No: Depression Endocrine: No: Polydipsia Hematologic/Lymphatic: No: Easy Bruising Physical Exam Narrative GENERAL: mild distress SKIN: Focused skin assessment warm/dry. Patient with increased redness and erythema circumferentially to left forearm, there is streaking radiates to his left shoulder, he does have a couple of what appears to be bug bites, there is no drainage from these areas. HEAD: Atraumatic. Normocephalic. EYES: Pupils equal and round. No scleral icterus. No injection or drainage. ENT: No nasal bleeding or discharge. Mucous membranes pink and moist. NECK: Trachea midline. No JVD. CARDIOVASCULAR: Regular rate and rhythm. No murmur appreciated. RESPIRATORY: No accessory muscle use. Clear to auscultation. Breath sounds equal bilaterally. GASTROINTESTINAL: Abdomen soft, non-tender, nondistended. Hepatic and splenic margins not palpable. MUSCULOSKELETAL: No obvious deformities. No clubbing. No cyanosis. Pulses intact, neurovascular intact, skin as above NEUROLOGICAL: Awake and alert. No obvious cranial nerve deficits. Motor grossly within normal limits. Normal speech. PSYCHIATRIC: Appropriate mood and affect; insight and judgment normal. Data Data Last Documented VS Vital Signs Date Time Temp Pulse Resp B/P (MAP) Pulse Ox O2 Delivery O2 Flow Rate FiO2 12/16/17 16:10 18 12/16/17 15:41 100.4 93 139/70 (93) 98 Orders Orders Complete Blood Count With Diff (12/16/17 15:51) Comprehensive Metabolic Panel (12/16/17 15:51) Prothrombin Time / Inr (Pt) (12/16/17 15:51) Act Partial Throm Time (Ptt) (12/16/17 15:51) Lactic Acid Sepsis Protocol (12/16/17 15:51) Blood Culture (12/16/17 15:51) Vancomycin Inj (Vancomycin Inj) (12/16/17 16:00) Ibuprofen (Motrin) (12/16/17 16:00) Sodium Chlor 0.9% 1000 Ml Inj (Ns 1000 M (12/16/17 16:00) Potassium Chloride (Kcl) (12/16/17 17:00) Admit Order (Ed Use Only) (12/16/17 17:55) Labs Laboratory Tests Test 12/16/17 16:00 White Blood Count 12.7 TH/MM3 Red Blood Count 4.37 MIL/MM3 Hemoglobin 13.3 GM/DL Hematocrit 39.2 % Mean Corpuscular Volume 89.7 FL Mean Corpuscular Hemoglobin 30.5 PG Mean Corpuscular Hemoglobin Concent 34.0 % Red Cell Distribution Width 14.4 % Platelet Count 292 TH/MM3 Mean Platelet Volume 8.6 FL Neutrophils (%) (Auto) 77.5 % Lymphocytes (%) (Auto) 10.7 % Monocytes (%) (Auto) 10.3 % Eosinophils (%) (Auto) 0.0 % Basophils (%) (Auto) 1.5 % Neutrophils # (Auto) 9.8 TH/MM3 Lymphocytes # (Auto) 1.4 TH/MM3 Monocytes # (Auto) 1.3 TH/MM3 Eosinophils # (Auto) 0.0 TH/MM3 Basophils # (Auto) 0.2 TH/MM3 CBC Comment DIFF FINAL Differential Comment Prothrombin Time 10.8 SEC Prothromb Time International Ratio 1.1 RATIO Activated Partial Thromboplast Time 33.0 SEC Blood Urea Nitrogen 18 MG/DL Creatinine 1.00 MG/DL Random Glucose 88 MG/DL Total Protein 8.1 GM/DL Albumin 3.6 GM/DL Calcium Level 9.1 MG/DL Alkaline Phosphatase 104 U/L Aspartate Amino Transf (AST/SGOT) 15 U/L Alanine Aminotransferase (ALT/SGPT) 14 U/L Total Bilirubin 0.7 MG/DL Sodium Level 136 MEQ/L Potassium Level 3.2 MEQ/L Chloride Level 104 MEQ/L Carbon Dioxide Level 24.1 MEQ/L Anion Gap 8 MEQ/L Estimat Glomerular Filtration Rate 80 ML/MIN Lactic Acid Level 0.9 mmol/L MDM Medical Decision Making Medical Screen Exam Complete: Yes Emergency Medical Condition: Yes Medical Record Reviewed: Yes Interpretation(s) Vital Signs Date Time Temp Pulse Resp B/P (MAP) Pulse Ox O2 Delivery O2 Flow Rate FiO2 12/16/17 15:41 100.4 93 16 139/70 (93) 98 Differential Diagnosis Cellulitis, bacteremia Narrative Course During the course of the patients emergency department visit, the patients history, examination, and differential diagnosis were reviewed with the patient. The patient was placed on a cardiac cath lab radiology technologist with oximetry and frequent blood pressure monitoring. The patient had an IV access obtained and blood work sent for analysis. The patient was initially provided IVF and IV vancomycin and motrin for treatment of fever The patients laboratory studies were reviewed and remarkable for: CBC & BMP Diagram 12/16/17 16:00 Total Protein 8.1, Albumin 3.6, Calcium Level 9.1, Alkaline Phosphatase 104, Aspartate Amino Transf (AST/SGOT) 15, Alanine Aminotransferase (ALT/SGPT) 14, Total Bilirubin 0.7 Vital Signs Date Time Temp Pulse Resp B/P (MAP) Pulse Ox O2 Delivery O2 Flow Rate FiO2 12/16/17 16:10 18 12/16/17 15:41 100.4 93 16 139/70 (93) 98 White blood cell count 12.7, hemoglobin 13.3, hematocrit 39.2, platelets 292, lactic acid is 0.9 Sodium 136, potassium 3.2, BUN 18, creatinine 1.0, carbon dioxide 24.1 Patient was given 1 dose of IV vancomycin, he does have SIRS criteria and has been pancultured. Plan to admit him overnight for IV antibiotics as he does have streaking from his left forearm to his shoulder Case reviewed with Dr. Gant who accepts pt to service Sepsis Criteria SIRS Criteria (2 or more): Temp > 100.9 or < 96.8, WBC > 08983, < 4000 or > 10 % bands Criteria Outcome: Meets SIRS criteria Diagnosis Primary Impression: Left arm cellulitis Additional Impression: SIRS (systemic inflammatory response syndrome) Admitting Information Admitting Physician Requests: Daiana Bazan DO Dec 16, 2017 16:01
[2017-12-16 16:14] LABS: AUTOMATED NEUTROPHIL # 9.8 TH/MM3 (1.8-7.7); BASOPHIL # 0.2 TH/MM3 (0-0.2); BASOPHIL % 1.5 % (0.0-2.0); HEMATOCRIT 39.2 % (39.0-51.0); HEMOGLOBIN 13.3 GM/DL (13.0-17.0); LYMPH % 10.7 % (9.0-44.0); LYMPHOCYTE # 1.4 TH/MM3 (1.0-4.8); MEAN CELL VOLUME 89.7 FL (80.0-100.0); MEAN CORPUSCULAR HEMOGLOBIN 30.5 PG (27.0-34.0); MEAN PLATELET VOLUME 8.6 FL (7.0-11.0); MONO % 10.3 % (0.0-8.0); MONOCYTE # 1.3 TH/MM3 (0-0.9); NEUT % 77.5 % (16.0-70.0); PLATELET COUNT 292 TH/MM3 (150-450); RED BLOOD COUNT 4.37 MIL/MM3 (4.50-5.90); RED CELL DISTRIBUTION WIDTH 14.4 % (11.6-17.2); WHITE BLOOD COUNT 12.7 TH/MM3 (4.0-11.0)
[2017-12-16 16:23] LABS: CHLORIDE 104 MEQ/L (98-107); SODIUM (NA) 136 MEQ/L (136-145)
[2017-12-16 16:27] LABS: ALBUMIN 3.6 GM/DL (3.4-5.0); BICARBONATE 24.1 MEQ/L (21.0-32.0); BLOOD UREA NITROGEN 18 MG/DL (7-18); CALCIUM 9.1 MG/DL (8.5-10.1); GLUCOSE,RANDOM 88 MG/DL (74-106); INTERNATIONAL NORMALIZED RATIO 1.1 RATIO; PROTHROMBIN TIME - PATIENT 10.8 SEC (9.8-11.6)
[2017-12-16 16:30] LABS: ALT (GPT) 14 U/L (12-78); AST (GOT) 15 U/L (15-37); GLOMERULAR FILTRATION RATE 80 ML/MIN (>89)
[2017-12-16 16:32] LABS: TOTAL BILIRUBIN ADULT 0.7 MG/DL (0.2-1.0); TOTAL PROTEIN 8.1 GM/DL (6.4-8.2)
[2017-12-16 16:33] LABS: ALKALINE PHOSPHATASE 104 U/L (45-117)
[2017-12-16] MEDS ORDERED: POTASSIUM CHLORIDE 10 MEQ CONTROLLED RELEASE TAB PO ONE (17:00)
[2017-12-16] MEDS ORDERED: BISACODYL 10 MG SUPP RECTAL PRN (18:00)
[2017-12-16] MEDS ORDERED: LACTULOSE SYRUP 20 GM/30 ML CUP PO PRN (18:00)
[2017-12-16] MEDS ORDERED: SENNOSIDES 8.6 MG TAB PO PRN (18:00)
[2017-12-16] MEDS ORDERED: NALOXONE HCL 0.4 MG/ML AMP IV PUSH PRN (18:00)
[2017-12-16] MEDS ORDERED: ONDANSETRON HCL 4 MG/2 ML VIAL IVP PRN (18:00)
[2017-12-16] MEDS ORDERED: MAGNESIUM HYDROXIDE SUSP 30 ML CUP PO PRN (18:00)
[2017-12-16] MEDS ORDERED: SODIUM CHLORIDE 0.9% FLUSH 10 ML FLUSH IV FLUSH PRN (18:00)
[2017-12-16] MEDS ORDERED: ACETAMINOPHEN/HYDROcodone 325 MG/5 MG TAB PO PRN (18:00)
[2017-12-16] MEDS ORDERED: IOHEXOL 350 MG/ML 10 ML VIAL (for RAD DIAG) IVCONTRAST ONE (18:07)
[2017-12-16 18:13] VITALS: BP 126/68; PULSE 86; RESP 16; O2SAT 96
[2017-12-16] MEDS ORDERED: Vancomycin Consult Pharmacy 1 EA OTHER SCH (19:00)
[2017-12-16 20:00] VITALS: BP 126/65; PULSE 90; RESP 18; TEMP 97.6; O2SAT 95
[2017-12-16 20:04] VITALS: BP 131/70; PULSE 84; RESP 18; O2SAT 97
[2017-12-16] MEDS: DOCUSATE SODIUM 50 MG/SENNA 8.6 MG TAB PO SCH (21:00)
[2017-12-17] MEDS: SODIUM CHLORIDE 0.9% FLUSH 10 ML FLUSH IV FLUSH SCH ×3 (00:35→21:43)
[2017-12-17] MEDS: VANCOMYCIN INJ 1,250 MG in SODIUM CHLOR 0.9% 250 ML INJ 250 ML IV SCH ×2 (04:19→16:43)
[2017-12-17 07:47] LABS: AUTOMATED NEUTROPHIL # 7.5 TH/MM3 (1.8-7.7); BASOPHIL # 0.1 TH/MM3 (0-0.2); EOSINOPHIL # 0.1 TH/MM3 (0-0.4); EOSINOPHIL % 0.6 % (0.0-4.0); HEMATOCRIT 36.5 % (39.0-51.0); HEMOGLOBIN 12.1 GM/DL (13.0-17.0); LYMPH % 15.4 % (9.0-44.0); LYMPHOCYTE # 1.7 TH/MM3 (1.0-4.8); MEAN CELL VOLUME 91.5 FL (80.0-100.0); MEAN CORPUSCULAR HEMOGLOBIN 30.3 PG (27.0-34.0); MEAN CORPUSCULAR HGB CONC 33.1 % (32.0-36.0); MEAN PLATELET VOLUME 9.1 FL (7.0-11.0); MONOCYTE # 1.3 TH/MM3 (0-0.9); PLATELET COUNT 263 TH/MM3 (150-450); RED BLOOD COUNT 3.98 MIL/MM3 (4.50-5.90); RED CELL DISTRIBUTION WIDTH 13.6 % (11.6-17.2); WHITE BLOOD COUNT 10.7 TH/MM3 (4.0-11.0)
[2017-12-17 07:58] LABS: BICARBONATE 23.5 MEQ/L (21.0-32.0); CALCIUM 8.6 MG/DL (8.5-10.1)
[2017-12-17 08:00] VITALS: BP 117/74; PULSE 83; RESP 16; TEMP 98; O2SAT 91
[2017-12-17 08:02] LABS: CREATININE 0.8 MG/DL (0.60-1.30)
[2017-12-17] MEDS: DOCUSATE SODIUM 50 MG/SENNA 8.6 MG TAB PO SCH ×2 (09:22→21:00)
[2017-12-17] MEDS: ACETAMINOPHEN/HYDROcodone 325 MG/7.5 MG TAB PO PRN ×3 (09:23→21:59)
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
[2017-12-17 12:00] VITALS: BP 127/83; PULSE 83; RESP 16; TEMP 98.7; O2SAT 91
[2017-12-17] MEDS ORDERED: busPIRone HCL 10 MG TAB PO SCH (13:00)
[2017-12-17] MEDS: PIPERACIL-TAZO 4.5 GM PREMIX 100 ML IV SCH ×3 (13:45→23:24)
[2017-12-17] MEDS: busPIRone HCL 10 MG TAB PO SCH ×2 (13:52→18:00)
[2017-12-17 16:00] VITALS: BP 127/83; PULSE 96; RESP 16; TEMP 98.6; O2SAT 99
--- NOTE | 2017-12-17 18:17 | RADRPT ---
EXAM DATE/TIME: 12/17/2017 17:51 [place] COMPARISON: No previous studies available for comparison. INDICATIONS : Left forearm pain and swelling for one week. Evaluate for cellulitis. IV CONTRAST: 95 cc Omnipaque 350 (iohexol) IV RADIATION DOSE: 24.93 CTDIvol (mGy) MEDICAL HISTORY : Seizures. Gastroesophageal reflux disease. Hypertension. SURGICAL HISTORY : Craniotomy. Orthopedic surgery. ENCOUNTER: Initial ACUITY: 1 week PAIN SCALE: 4/10 LOCATION: Left forearm TECHNIQUE: Volumetric scanning of the forearm was performed. Using automated exposure control and adjustment of the mA and/or kV according to patient size, radiation dose was kept as low as reasonably achievable to obtain optimal diagnostic quality images. DICOM format image data is available electronically fo r review and comparison. FINDINGS: BONES: No evidence of fracture. Alignment is within normal limits. JOINTS: No evidence of joint narrowing or effusion. SOFT TISSUES: Extensive soft tissue swelling is present there is no subcutaneous tissue along the ulna. There are n o gas bubbles identified. Muscles, tendons, and neurovascular structures are grossly unremarkable. No evidence of mass, organized fluid collection, or foreign body. CONCLUSION: Extensive soft tissue swelling greatest along the ulnar aspect of the forearm. There is no focal abscess or foreign body identified. There are no underlying bony abnormalities. Jeancarlos Temple MD on December 17, 2017 at 18:10 Board Certified Radiologist. This report was verified electronically.
[2017-12-17 20:00] VITALS: BP 122/77; PULSE 69; RESP 20; TEMP 98.7; O2SAT 97
[2017-12-17] MEDS ORDERED: MIRTAZAPINE ODT 15 MG TAB PO SCH (21:00)
[2017-12-18] VITALS: BP 128/76; PULSE 72; RESP 20; TEMP 98.4; O2SAT 97
[2017-12-18] MEDS ORDERED: VANCOMYCIN TROUGH ONE (03:45)
[2017-12-18] MEDS: VANCOMYCIN INJ 1,250 MG in SODIUM CHLOR 0.9% 250 ML INJ 250 ML IV SCH (03:48)
[2017-12-18 04:03] LABS: CREATININE 0.87 MG/DL (0.60-1.30)
[2017-12-18] MEDS: PIPERACIL-TAZO 4.5 GM PREMIX 100 ML IV SCH (05:06)
[2017-12-18] MEDS ORDERED: BACT800T5 PO (06:24)
[2017-12-18] MEDS ORDERED: SERTRALINE HCL 50 MG TAB PO SCH (09:00)
== END 2017-12-18 08:10 | disposition home or self-care (01) ==
LOC: PHED 15:34 → PHEDA 17:56 → PH3A 20:19
PROVIDERS: ADMIT Hospitalist; ATTEND Hospitalist
DX: L03.114 Cellulitis of left upper limb (principal); R65.10 Systemic inflammatory response syndrome (SIRS) of non-infectious origin without acute organ dysfunction; I10 Essential (primary) hypertension; K21.9 Gastro-esophageal reflux disease without esophagitis; J44.9 Chronic obstructive pulmonary disease, unspecified; F31.9 Bipolar disorder, unspecified; F17.210 Nicotine dependence, cigarettes, uncomplicated; Z87.820 Personal history of traumatic brain injury
CPT/HCPCS: 73201; 80048; 80053; 80202; 82565; 83605; 85025; 85610; 85730; 87040; 96365; 96366; 96376; 99285; G0378; J2543; J3370; J7030; J7050; Q9967